=== PATIENT | female | born 2000 | race Caucasian/White ===

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

== ENCOUNTER 2022-10-20 18:19 | Emergency (ER) | payer OTHER, MEDICAID, SELFPAY ==
[2022-10-20] VITALS (25 sets, daily range): BP systolic 104–160; BP diastolic 55–81; PULSE 50–78; RESP 16–22; TEMP 36.4–36.5; O2SAT 91–100; BMI 28.5
--- NOTE | 2022-10-20 19:20 | DI.US.S_ITS ---
PROCEDURE: US PELVIC COMPLETE INDICATIONS: CHECK IUD PLACEMENT TECHNIQUE: Real-time scanning was performed of the pelvic organs, with image documentation. Additional endovaginal scanning was necessary due to incomplete visualization of the adnexal and endometrial structures by transabdominal scanning. COMPARISON: None. FINDINGS: Uterus: Uterus is anteverted and measures 6.6 x 3.3 x 3.9 cm. Endometrium measures up to 0.9 cm in thickness. There is an IUD extending into the fundal endometrium. Ovaries: The right ovary measures 3.0 x 2.2 x 1.2 cm, with a calculated ovarian volume of 4.3 cc. The left ovary measures 2.3 x 1.8 x 1.7 cm, with a calculated ovarian volume of 3.6 cc. The ovaries have a normal sonographic appearance. Less than 12 follicles can be seen in each ovary. No adnexal masses are seen. Other: No pathologic free abdominal or pelvic fluid. IMPRESSION: 1. IUD appears in appropriate position, extending into the fundal endometrium. We strive to produce accurate, complete, and clear reports of imaging services. To assist us in improving patient care, this report was composed using standard report templates and voice recognition software. Therefore, it may contain abnormal punctuation, insertions and/or omissions. Occasional wrong-word or sound-alike substitutions may occur. Though we review the report and make efforts to correct it, we do recommend that the report be read carefully in proper context to recognize any text inaccuracies. Dictated by: Bart Benavides M.D. on 10/20/2022 at 22:13 Approved by: Bart Benavides M.D. on 10/20/2022 at 22:14
--- NOTE | 2022-10-20 19:20 | ED.NAVMDI ---
HPI - Nausea/Vomiting/Diarrhea General Chief complaint: Nausea/Vomiting/Diarrhea Stated complaint: IUD placed today/shivers/N/V/D Time Seen by Provider: 10/20/22 18:33 Source: patient and family Mode of arrival: Ambulatory History of Present Illness HPI Narrative: Patient is a 21-year-old female. She had a Mirena IUD placed today at approximately 1400 hours. During that visit in afterwards she has had shivers, nausea and vomiting. She is also had tingling in her arms and legs. Has been breathing fast as well. His having some abdominal cramping. Was advised to come to the emergency department by the provider who placed the device. Related Data Allergies Allergy/AdvReac Type Severity Reaction Status Date / Time No Known Drug Allergies Allergy Verified 10/20/22 18:25 Review of Systems Review of Systems ROS Unobtainable: All systems reviewed & are unremarkable except as noted in HPI and below Patient History Social History Smoking Status: Unknown if ever smoked Smoking Status: Unknown if ever smoked alcohol intake frequency: holidays/special occasions only Substance Use Type: does not use Exam Initial Vital Signs Initial Vital Signs: Vital Signs Pulse Rate 66 10/20/22 18:23 Blood Pressure 137/72 10/20/22 18:23 HENMT Head: normal to inspection and normocephalic Resp Effort & Inspection: normal respiratory effort Cardio Rate: regular rate GI Inspection: normal to inspection Psych Other: Anxious Course Orders Ordered: ED Orders 10/20/22 19:20 US pelvic complete Stat 10/20/22 19:40 Basic Metabolic Panel Stat Complete Blood Count AUTO DIFF Stat Discontinued Medications Sodium Chloride (Normal Saline 0.9%) 1,000 mls @ 1,000 mls/hr IV BOLUS ONE Stop: 10/20/22 20:19 Last Infusion: 10/20/22 20:47 Dose: 0 mls/hr Documented By: Admin: 10/20/22 19:47 Dose: 1,000 mls/hr Documented By: MAYELA Lorazepam (Lorazepam 2 Mg/Ml Inj) 0.5 mg IV NOW ONE Stop: 10/20/22 19:21 Last Admin: 10/20/22 19:48 Dose: 0.5 mg Documented By: MAYELA Ondansetron HCl (Ondansetron 4 Mg/2 Ml Inj) 4 mg IV NOW ONE Stop: 10/20/22 19:21 Last Admin: 10/20/22 19:48 Dose: 4 mg Documented By: MAYELA Vital Signs Vital signs: Vital Signs - 8 hr 10/20/22 18:25 10/20/22 18:23 10/20/22 18:23 Temperature 97.7 F Pulse Rate 66 66 Respiratory Rate 22 Blood Pressure 137/72 137/72 Pulse Oximetry 100 Oxygen Delivery Method Room Air 10/20/22 18:30 10/20/22 18:30 10/20/22 18:45 Temperature Pulse Rate 61 60 Respiratory Rate Blood Pressure 144/79 H Pulse Oximetry 100 100 Oxygen Delivery Method 10/20/22 19:00 10/20/22 19:00 10/20/22 19:15 Temperature Pulse Rate 65 52 L Respiratory Rate Blood Pressure 138/81 Pulse Oximetry 100 100 Oxygen Delivery Method 10/20/22 19:30 10/20/22 19:44 10/20/22 19:44 Temperature Pulse Rate 65 61 Respiratory Rate Blood Pressure 143/74 H Pulse Oximetry 94 100 Oxygen Delivery Method 10/20/22 19:45 10/20/22 20:00 10/20/22 20:01 Temperature Pulse Rate 50 L 58 L Respiratory Rate Blood Pressure 160/75 H Pulse Oximetry 100 100 Oxygen Delivery Method 10/20/22 20:01 10/20/22 20:15 10/20/22 20:31 Temperature Pulse Rate 54 L 62 51 L Respiratory Rate 20 Blood Pressure Pulse Oximetry 100 100 99 Oxygen Delivery Method 10/20/22 20:31 10/20/22 20:45 10/20/22 21:00 Temperature Pulse Rate 52 L 60 Respiratory Rate Blood Pressure 149/67 H Pulse Oximetry 91 99 Oxygen Delivery Method 10/20/22 21:01 10/20/22 21:01 10/20/22 21:15 Temperature Pulse Rate 50 L 53 L Respiratory Rate Blood Pressure 104/55 L Pulse Oximetry 99 98 Oxygen Delivery Method 10/20/22 21:30 10/20/22 21:30 10/20/22 21:45 Temperature Pulse Rate 63 69 Respiratory Rate 16 Blood Pressure 108/56 L Pulse Oximetry 99 98 Oxygen Delivery Method 10/20/22 22:00 10/20/22 22:01 10/20/22 22:01 Temperature Pulse Rate 62 61 Respiratory Rate Blood Pressure 122/60 Pulse Oximetry 97 97 Oxygen Delivery Method 10/20/22 22:15 10/20/22 22:30 10/20/22 22:30 Temperature Pulse Rate 59 L 66 Respiratory Rate Blood Pressure 109/59 L Pulse Oximetry 97 99 Oxygen Delivery Method 10/20/22 22:35 10/20/22 22:35 10/20/22 22:44 Temperature 97.6 F Pulse Rate 54 L 78 Respiratory Rate 16 16 Blood Pressure 117/66 Pulse Oximetry 100 99 Oxygen Delivery Method Room Air MDM - Nausea/Vomiting/Diarrhea Lab Data Attestation: I reviewed the patient's lab results. 10/20/22 19:40 10/20/22 19:40 Labs: Lab Results 10/20/22 10/20/22 Range/Units 19:40 19:40 WBC 8.7 (4.5-11.0) X10^3/uL RBC 4.72 (4.0-5.2) X10^6/uL Hgb 14.6 (12.0-16.0) g/dL Hct 42.2 (36-46) % MCV 89.4 (80-100) fL MCH 31.0 (26-34) PG MCHC 34.6 (30-36) % RDW 12.3 (11.6-14.8) % Plt Count 250 (150-400) X10^3/uL Neut % (Auto) 86.5 H (50-75) % Lymph % (Auto) 10.1 L (25-40) % Allen % (Auto) 2.9 L (3-14) % Eos % (Auto) 0.0 L (2-4) % Baso % (Auto) 0.5 (0-2) % Neut # (Auto) 7500 H (0621-1136) /uL Lymph # (Auto) 900 L (9613-7663) /uL Allen # (Auto) 200 (0-900) /uL Eos # (Auto) 0 (0-450) /uL Baso # (Auto) 0 (0-100) /uL Sodium 138 (137-145) mmol/L Potassium 4.7 (3.4-5.1) mmol/L Chloride 109 H (98-107) mmol/L Carbon Dioxide 13 L (22-32) mmol/L BUN 12 (7-17) mg/dL Creatinine 0.70 (0.52-1.04) mg/dL Estimated GFR > 60 (>60) mL/min BUN/Creatinine Ratio 17.1 (6-22) Glucose 108 H (70-100) mg/dL Calcium 9.9 (8.4-10.2) mg/dL Imaging Data US - VOIP TECHNICIAN: Radiologist's Impression: PROCEDURE:? US PELVIC COMPLETE ? INDICATIONS:? CHECK IUD PLACEMENT ? TECHNIQUE:? Real-time scanning was performed of the pelvic organs, with image documentation.? Additional endovaginal scanning was necessary due to incomplete visualization of the adnexal and endometrial structures by transabdominal scanning.? ? COMPARISON:? None. ? FINDINGS:? ?? Uterus:? Uterus is anteverted and measures 6.6 x 3.3 x 3.9 cm.? Endometrium measures up to 0.9 cm in thickness.? There is an IUD extending into the fundal endometrium. ? Ovaries:? The right ovary measures 3.0 x 2.2 x 1.2 cm, with a calculated ovarian volume of 4.3 cc. The left ovary measures 2.3 x 1.8 x 1.7 cm, with a calculated ovarian volume of 3.6 cc. The ovaries have a normal sonographic appearance. Less than 12 follicles can be seen in each ovary.? No adnexal masses are seen. ? Other:? No pathologic free abdominal or pelvic fluid. ? ? IMPRESSION:? ? 1. IUD appears in appropriate position, extending into the fundal endometrium. MDM Narrative Medical decision making narrative: Have a very high suspicion that the patient's presentation today is anxiety related. The IUD has in a appropriate position. She is having the expected cramping in her lower abdomen after having this device displaced today. After medications here in the ER patient states she is feeling much better. She is ambulatory. Patient is safe for discharge home. Discharge Plan Departure Patient Disposition: Home Clinical Impression: Shaking, Nausea and vomiting Instructions: Nausea and Vomiting-Adult Activity Restrictions/Additional Instructions: I recommend that you follow all of the postprocedure instructions given to you by the provider who placed the IUD. You can take Motrin as needed for discomfort. Return to the emergency department for new symptoms. Referrals: Holly Dugan MD [Primary Care Provider] - Stand Alone Forms: Patient Portal/API
[2022-10-20] MEDS: SODIUM CHLORIDE 0.9% 1,000 ML 1000 ML IV (19:47)
[2022-10-20] MEDS: ONDANSETRON 4 MG/2 ML INJ IV (19:48)
[2022-10-20] MEDS: LORazepam 2 MG/ML INJ 0.5 MG IV (19:48)
[2022-10-20 19:54] LABS: Add Manual Diff / Slide Review NO; Basophils Absolute Auto 0 /uL (0-100); Basophils Percent Auto 0.5 % (0-2); Eosinophils Absolute Auto 0 /uL (0-450); Hematocrit 42.2 % (36-46); Hemoglobin 14.6 g/dL (12.0-16.0); Lymphocytes Absolute Auto 900 /uL (1100-4500); Lymphocytes Percent Auto 10.1 % (25-40); Mean Corpuscular HGB Conc 34.6 % (30-36); Mean Corpuscular Volume 89.4 fL (80-100); Monocytes Absolute Auto 200 /uL (0-900); Monocytes Percent Auto 2.9 % (3-14); Neutrophils Absolute Auto 7500 /uL (1500-7000); Neutrophils Percent Auto 86.5 % (50-75); Platelet Count 250 X10^3/uL (150-400); Red Blood Cell Count 4.72 X10^6/uL (4.0-5.2); Red Cell Distribution Width 12.3 % (11.6-14.8); White Blood Cell Count 8.7 X10^3/uL (4.5-11.0)
[2022-10-20 20:09] LABS: BUN Creatinine Ratio 17.1 (6-22); Blood Urea Nitrogen 12 mg/dL (7-17); Calcium 9.9 mg/dL (8.4-10.2); Carbon Dioxide 13 mmol/L (22-32); Chloride 109 mmol/L (98-107); Estimated Glomerular Filt Rate > 60 mL/min (>60); Glucose 108 mg/dL (70-100); HEMOLYSIS 27 (0-50); Potassium 4.7 mmol/L (3.4-5.1); Sodium 138 mmol/L (137-145)
--- NOTE | 2022-10-20 20:47 | PC.NURSE ---
Pt O2 dropped while sleeping. When I woke her up her O2 sat increased to 95%. Dr Farrell aware. Pts O2 sat again returned to 86% while sleeping. 2L NC placed on pt. Dr Farrell aware. Pts O2 now staying between 96% and 100% on 2L NC.
== END 2022-10-20 22:40 | disposition home or self-care (01) ==
PROVIDERS: Emergency Provider Emergency Medicine; PCP Family Medicine
DX: R25.1 Tremor, unspecified (principal); R11.2 Nausea with vomiting, unspecified; R20.2 Paresthesia of skin; R10.9 Unspecified abdominal pain; Z97.5 Presence of (intrauterine) contraceptive device
CPT/HCPCS: 36415; 76830; 76856; 80048; 85025; 96361; 96374; 96375; 99284; J2060; J2405